=== PATIENT | female | born 1945 | race Caucasian/White ===

== ENCOUNTER 2016-12-15 21:17 | Emergency (ER) | payer MEDICARE, BC ==
[2016-12-15] MEDS: NORMAL SALINE 1,000 ML IV ONE ×2 (21:50→22:58)
[2016-12-15] MEDS: ONDANSETRON HCL/PF 2 MG/ML VIAL IV ONE (21:54)
[2016-12-15] MEDS ORDERED: ONDANSETRON HCL/PF 2 MG/ML VIAL ONE (21:54)
[2016-12-15 21:55] LABS: Hematocrit 42.2 % (37.0-47.0); Hemoglobin 14.6 gm/dL (12.5-16.0); Mean Cell Volume 93.2 fl (78-100); Mean Corpuscular Hemoglobin 32.2 pg (27-31); Mean Corpuscular Hgb Conc 34.6 g/dl (32-36); Mean Platelet Volume 10.6 fl (6.0-9.5); Neutrophil # 2.8 K/mm3 (1.3-6.0); Platelet Count 130 K/mm3 (150-450); Red Blood Count 4.53 M/mm3 (4.2-5.4); Red Cell Distribution Width 13.1 % (11.5-14.0); White Blood Count 4.6 K/mm3 (4.0-10.5)
--- NOTE | 2016-12-15 22:24 | ERNOTE ---
Medical Problem HPI - Narrative Date of Service: 12/15/16 - General Chief Complaint: Nausea/Vomiting Time Seen by Provider: 12/15/16 21:36 Source: patient Exam Limitations: no limitations - Immun/Allergies/Home Medications Immunizations: IMMUNIZATION HX Immunizations Up to Date Yes History of Influenza Vaccine Yes Hx Pneumococcal Vaccination Yes Allergies/Adverse Reactions: Allergies Sulfa (Sulfonamide Antibiotics) [Sulfa(Sulfonamide Antibiotics)] Allergy (Mild, Verified 09/06/15 10:31) Hives codeine Allergy (Verified 02/03/16 13:34) tioconazole [From Monistat 1] Adverse Reaction (Severe, Verified 09/06/15 10:31) Itching hydrocodone bitartrate [From Vicodin] Adverse Reaction (Verified 09/06/15 10:31) Other Home Medications: HOME MEDICATIONS Calcium [Calcio [place]] 500 mg PO DAILY #0 03/14/12 [Last Taken Unknown] Metoprolol Succinate [Toprol Xl] 30 mg PO DAILY 09/06/15 [Last Taken Unknown] Alprazolam [Xanax] 0.25 mg PO BID PRN 12/15/16 [Last Taken Unknown] Esomeprazole Magnesium [Nexium] 50 mg PO DAILY 12/15/16 [Last Taken Unknown] L.acidoph,Paracasei, B.lactis [Probiotic] 1 each PO DAILY 12/15/16 [Last Taken Unknown] Tramadol HCl [Rybix Odt] 50 mg PO BID PRN 12/15/16 [Last Taken Unknown] - History of Present History Narrative: This is a 71-year-old female who is generally healthy. Yesterday morning she started with abdominal pain nausea vomiting and diarrhea. She presents with fatigue and nausea. She has not taken any medications and states that she gets dehydrated easily. Review of Systems - Review of Systems Constitutional: Present: fatigue EYE: Present: no symptoms reported ENT: Present: no symptoms reported Respiratory: Present: no symptoms reported Cardiology: Present: no symptoms reported Gastrointestinal/Abdominal: Present: See HPI, nausea, vomiting, diarrhea. Absent: constipation, abdominal pain Genitourinary: Present: no symptoms reported Musculoskeletal: Present: no symptoms reported Skin: Present: no symptoms reported Neurological: Present: no symptoms reported - Patient's Past Medical History Patient History - Medical: Chronic Pain, Depression, GERD Patient History - Cardiac/Respiratory: Hypertension Patient History - Cancer: No Hx of Cancer Patient History - Surgical Procedures: Cholecystectomy, Colonoscopy, T & A Patient History - Other: None - Family History Mother Family History - Medical: GERD Father Family History - Medical: Family History - Cardiac/Respiratory: Hypertension - Social History Living Situations: spouse Abuse History: No History of abuse Psych History: Hx of Depression Smoking Status: Never smoker Have you smoked in the past 12 months: No Do you dip or chew tobacco: No Alcohol Use: none Drug Use: none - Immunizations Immunizations Up to Date: Yes Hx Pneumococcal Vaccination: Yes History of Influenza Vaccine: Yes Physical Exam - Physical Exam General Appearance: Present: wd/wn, alert, no apparent distress - patient appears tired and fatigued but she does not appear in any respiratory or other kind of distress. Head Exam: Present: normal inspection, no evidence of injury Eye Exam: Normal inspection: bilateral, PERRL: bilateral, EOMI: bilateral Respiratory: Present: no respiratory distress, normal breath sounds, no accessory muscle use, chest nontender, lungs clear Cardiovascular/Chest: Present: regular rate, rhythm, no murmur, normal peripheral pulses Gastrointestinal/Abdominal: Present: nontender, soft, other - patient has increased bowel sounds. However her belly is soft nondistended nontender no rebound tenderness is noted in her belly exam is benign Back Exam: Present: normal inspection, normal range of motion, no CVA tenderness , no vertebral tenderness Neurological Exam: Present: alert, oriented, normal mood/affect, no motor/ sensory deficits ED Progress - Results and Orders Patient's Lab Results:: I have reviewed the patient's lab results. - Vital Signs Patient's Vital Signs:: I have reviewed the patient's vital signs. Vital Signs: Vital Signs 12/15/16 12/15/16 21:21 22:01 Temperature 36.4 C L Pulse Rate 70 88 Respiratory 14 16 Rate Blood Pressure 182/86 170/80 O2 Sat by Pulse 100 99 Oximetry - X-Ray X-Ray #1 X-Ray: abdomen - Progress/Reassessment Chief Complaint: Nausea/Vomiting Plan - Plan Plan: pt felt significantly better after NS X 2 liters and Zofran 4mg IV and Phenergan 25 mg IV. Departure Clinical Impression: Dehydration, Viral gastroenteritis - Departure Disposition: Home self-care Condition: Good Instructions: Viral Gastroenteritis, Adult, [id number] Referrals: Lissy Azul, [facility] [Primary Care Provider] -
[2016-12-15 22:33] LABS: Albumin * 4.3 gm/dl (3.4-5.0); Anion Gap 16.3 mmol/L (6.8-13.8); Bilirubin, Total 0.8 mg/dL (0.0-1.1); Ca. Corrected For Albumin 8.8 mg/dL (8.4-10.2); Calcium * 9.4 mg/dL (7.9-10.9); Carbon Dioxide 26.8 mmol/L (24-32.6); Potassium 4.1 mmol/L (3.4-4.6); Total Protein 7.7 gm/dL (6.2-8.2)
[2016-12-15] MEDS: PROMETHAZINE HCL 25 MG in DEXTROSE 5 % IN WATER 50 ML IV ONE ×2 (22:52)
[2016-12-15] MEDS ORDERED: NORMAL SALINE 1,000 ML IV ONE (23:45)
[2016-12-16 00:06] LABS: Urine Bilirubin Negative (NEGATIVE); Urine Blood 25 /ul (NEGATIVE); Urine Ketone 5 mg/dL (NEGATIVE); Urine Nitrite Negative (NEGATIVE); Urine Protein Negative (NEGATIVE); Urine Urobilinogen Normal (NORMAL)
[2016-12-16 00:29] LABS: Urine Appearance Clear; Urine Color Yellow; Urine RBC None Seen /hpf (0-5); Urine WBC None Seen /hpf (0-5)
[2016-12-16 00:30] LABS: Urine Bacteria TRACE
[2016-12-16 00:36] VITALS: BP 149/79
== END 2016-12-16 00:35 | disposition home or self-care (01) ==
LOC: ER 21:17
DX: A08.4 Viral intestinal infection, unspecified (principal); E86.0 Dehydration; K21.9 Gastro-esophageal reflux disease without esophagitis; I10 Essential (primary) hypertension; F32.9 Major depressive disorder, single episode, unspecified
CPT/HCPCS: 36415; 74020; 80053; 81001; 85025; 96361; 96365; 96375; 99284; J2405

== ENCOUNTER 2016-12-23 12:00 | Day surgery (SDC) | payer MEDICARE, BC ==
[~2016-12-23 12:00] MED LIST: ERTAPENEM SODIUM 1,000 MG in NORMAL SALINE 100 ML IV PRN; GENTAMICIN SULFATE IR PRN; NORMAL SALINE 1,000 ML IV PRN; SODIUM CL IRRIG IR PRN
[2016-12-23 16:55] VITALS: BP 127/69
== END 2016-12-23 12:01 | disposition home or self-care (01) ==
LOC: AMB 12:00
PROVIDERS: ATTEND Urology
PROC: 3E1K88X Irrigation of Genitourinary Tract using Irrigating Substance, Via Natural or Artificial Opening Endoscopic, Diagnostic (ICD-10-PCS; 2016-12-23)
PROC: 0TJB8ZZ Inspection of Bladder, Via Natural or Artificial Opening Endoscopic (ICD-10-PCS; principal; 2016-12-23 13:00)
DX: N39.0 Urinary tract infection, site not specified (principal); B96.1 Klebsiella pneumoniae [K. pneumoniae] as the cause of diseases classified elsewhere; R33.9 Retention of urine, unspecified; I10 Essential (primary) hypertension; Z68.1 Body mass index [BMI] 19.9 or less, adult; Z87.440 Personal history of urinary (tract) infections; Z16.19 Resistance to other specified beta lactam antibiotics; Z16.11 Resistance to penicillins

== ENCOUNTER 2017-10-03 17:40 | Observation (INO) | payer BC, MEDICARE ==
[2017-10-03] MEDS ORDERED: ONDANSETRON 4 MG TAB.RAPDIS PO ONE (19:01)
[2017-10-03] MEDS ORDERED: ONDANSETRON HCL 8 MG TABLET ONE (19:03)
[2017-10-03] MEDS ORDERED: ONDANSETRON HCL/PF 2 MG/ML VIAL ONE (19:05)
[2017-10-03] MEDS ORDERED: ONDANSETRON HCL/PF 2 MG/ML VIAL IV ONE ×2 (19:10→19:45)
[2017-10-03] MEDS ORDERED: diphenhydrAMINE HCL 50 MG/ML VIAL IV ONE (19:10)
[2017-10-03] MEDS ORDERED: diphenhydrAMINE HCL 50 MG/ML VIAL ONE (19:12)
[2017-10-03] MEDS ORDERED: NORMAL SALINE 1,000 ML IV ONE (19:13)
--- NOTE | 2017-10-03 19:29 | ERNOTE ---
Abdominal HPI - Narrative Date of Service: 10/03/17 - General Chief Complaint: Abdominal Pain Time Seen by Provider: 10/03/17 18:56 Source: patient, family Exam Limitations: no limitations - Immun/Allergies/Home Medications Immunizatons: IMMUNIZATION HX Immunizations Up to Date Yes History of Influenza Vaccine Yes Hx Pneumococcal Vaccination Yes Allergies/Adverse Reactions: Allergies Sulfa (Sulfonamide Antibiotics) [Sulfa(Sulfonamide Antibiotics)] Allergy (Mild, Verified 10/03/17 08:32) Hives codeine Adverse Reaction (Intermediate, Verified 10/03/17 08:32) HEART PALPITATIONS hydrocodone bitartrate [From Vicodin] Adverse Reaction (Intermediate, Verified 10/03/17 08:32) HEART PALPITATIONS tioconazole [From Monistat 1] Adverse Reaction (Intermediate, Verified 10/03/17 08:32) RED RAW RASH Home Medications: HOME MEDICATIONS Ca/D3/Mag#11/Zinc/Dividend Deposit Voucher Clerk/Santhosh/Bor [Caltrate Plus Tablet] 1 ea PO DAILY 12/22/16 [ Last Taken Unknown] Cranberry Conc/Ascorbic Acid [Cranberry Concentrate Softgel] 2 ea PO BID [Last Taken Unknown] Minocycline HCl [Minocin] 100 mg PO DAILY PRN 12/22/16 [Last Taken Unknown] Multivitamins [Multivitamin Mohit] 1 cap PO DAILY 12/22/16 [Last Taken Unknown] tramadol 50 mg tablet 50 mg PO Q12H PRN #60 tab 08/24/17 [Last Taken Unknown] alprazolam 0.5 mg tablet 0.5 mg PO TID PRN #90 tab 09/11/17 [Last Taken Unknown] conjugated estrogens 0.625 mg/gram vaginal cream 500 mg VG .twice weekly g 07/24 [Last Taken Unknown] zhpzbqetcj-sxhfjhzotqgq-poeoyt 100 mg-500 mg-50 mg capsule 1 cap PO DAILY cap 09/11/17 [Last Taken Unknown] metoprolol succinate ER 50 mg tablet,extended release 24 hr 50 mg PO DAILY 09/11 [Last Taken Unknown] esomeprazole magnesium 40 mg capsule,delayed release 40 mg PO DAILY #30 cap 08/23 [Last Taken Unknown] sucralfate 1 gram tablet 1 g PO QID 14 Days #56 tab 10/03/17 [Last Taken Unknown ] - History of Present Illness Narrative: Pt presents with a 2 week history of mid epigastric pain. She was seen by her PCP today with labs and xrays completed. Laboratory findings were unremarkable. She was sent home with Carafate and diagnosed with gastroenteritis. Last week she was also seen and her Nexium was increased to 40mg PO daily. Last week associated symptoms were diarrhea and constipation, this has since resolved. Now she is experiencing intractable nausea and dry heaves. She has decreased appetite, been unable to tolerate anything PO. She states that about 8 years ago she has an episode very similar to this that required hospitalization where she was seen by Dr. Umaña who diagnosed her with H. Pylori. That is when her last workup including a colonoscopy and EGD were preformed. She cannot get into Dr. Umaña for another week. Date (Duration): 09/19/17 Time (Timing): 10:00 Timing: constant, getting worse Quality: severe, aching, dullness Activities at Onset: none Modifying Factors - (Improves): Present: lying down Modifying Factors - (Worsens): Present: eating, vomiting Associated Symptoms: Present: back pain, fatigue, heartburn, nausea, vomiting, loss of appetite, weakness Prior Abdominal Problems: Present: similar symptoms Prior Treatment: Present: recently seen, treated by physician Review of Systems - Review of Systems Constitutional: Present: weakness, fatigue, malaise EYE: Present: no symptoms reported ENT: Present: no symptoms reported Respiratory: Present: no symptoms reported Cardiology: Present: no symptoms reported Gastrointestinal/Abdominal: Present: See HPI, nausea, vomiting, diarrhea, abdominal pain, eating less Genitourinary: Present: no symptoms reported Musculoskeletal: Present: no symptoms reported Skin: Present: no symptoms reported Neurological: Present: no symptoms reported Endocrine: Present: no symptoms reported Hematologic/Lymphatic: Present: no symptoms reported Psych: Present: anxiety Medical History (Last Reviewed 10/03/17 @ 08:38 by ERNESTO Guevara) Osteopenia (Chronic) Onset Date: ~2013 Hypertension (Chronic) Onset Date: Unknown GERD (gastroesophageal reflux disease) (Chronic) Onset Date: Unknown Depression (Chronic) Onset Date: Unknown Anxiety (Chronic) Onset Date: Unknown Abnormal Pap smear of vagina Onset Date: Unknown Bulging disc Onset Date: Unknown Carbuncle Onset Date: Unknown H. pylori infection Onset Date: ~2009 Headache Onset Date: Unknown Hiatal hernia Onset Date: Unknown Left knee pain Onset Date: Unknown Patellar tendinitis Onset Date: ~2011 UTI (urinary tract infection) Onset Date: Unknown Urinary retention Onset Date: Unknown Surgical History: Surgical History (Last Reviewed 10/03/17 @ 08:38 by ERNESTO Guevara) H/O colonoscopy Onset Date: ~2006 H/O cystoscopy Onset Date: ~12/2016 H/O wisdom tooth extraction Onset Date: Unknown History of cholecystectomy Onset Date: ~1992 History of endometrial biopsy Onset Date: ~11/2016 History of esophagogastroduodenoscopy (EGD) Onset Date: ~2011 History of nasal surgery Onset Date: ~2010 Hx of tonsillectomy Onset Date: ~1946 S/P epidural steroid injection Onset Date: ~2010 Family History: Family History (Last Reviewed 10/03/17 @ 08:38 by ERNESTO Guevara) Father CVA (cerebral vascular accident) Hypertension Mother Alive and well Social History: Preferred Language Khmer Do you have any hinduism or Yes: holiness cultural preference? Have you smoked in the past 12 No months Do you dip or chew tobacco No Abuse History No History of abuse Psych History Hx of Anxiety,Hx of Depression,Currently on Meds Alcohol Use sober Drug Use none Physical Exam - Physical Exam General Appearance: Present: wd/wn, alert, moderate distress, anxious Head Exam: Present: normal inspection Eye Exam: Normal inspection: bilateral Ears, Nose, Throat: Present: normal ENT inspection Neck: Present: normal inspection Respiratory: Present: no respiratory distress Cardiovascular/Chest: Present: regular rate, rhythm, no murmur, normal peripheral pulses Gastrointestinal/Abdominal: Present: normal bowel sounds, nondistended, soft, no organomegaly, tenderness Back Exam: Present: normal inspection Extremity Exam: Present: normal inspection Neurological Exam: Present: alert, oriented, normal mood/affect, no motor/ sensory deficits Skin Exam: Present: normal color, warm/dry Lymphatic Exam: Present: no adenopathy ED Progress - Date and Time Seen: Date and Time: 10/03/17 20:32 Pt pain slightly improved following GI cocktail. Still endorsing BRAY. Nausea has subsided. - Results and Orders Patient's Lab Results:: I have reviewed the patient's lab results. - Vital Signs Patient's Vital Signs:: I have reviewed the patient's vital signs. Vital Signs: Vital Signs 10/03/17 17:49 Temperature 37.1 C Pulse Rate 77 Respiratory Rate 14 Blood Pressure 151/82 H O2 Sat by Pulse Oximetry 100 - Progress/Reassessment Chief Complaint: Abdominal Pain Progress:: Unchanged Plan - Plan Plan: Pt is still having persistent nausea. She states her epigastric pain has returned and she does not feel like she is well enough to go home. Dr. Ceja accepts pt as in pt obs. Departure Clinical Impression: Viral gastroenteritis, Nausea, Dehydration GERD (gastroesophageal reflux disease) Qualifiers: Esophagitis presence: esophagitis presence not specified Qualified Code(s): K21.9 - Gastro-esophageal reflux disease without esophagitis - Departure Disposition: Still a patient Condition: Good Referrals: Lissy Azul FNP [Primary Care Provider] -
[2017-10-03] MEDS ORDERED: BELLADONNA ALKALOIDS/PHENOBARB 60 ML BTL PO ONE (19:42)
[2017-10-03] MEDS ORDERED: MAG HYDROX/ALUMINUM HYD/SIMETH 30 ML UDC PO ONE (19:42)
[2017-10-03] MEDS ORDERED: LIDOCAINE HCL 20 ML UDC MM ONE (19:42)
[2017-10-03] MEDS ORDERED: PANTOPRAZOLE SODIUM 40 MG in NORMAL SALINE 100 ML IV ONE (19:45)
[2017-10-03] MEDS ORDERED: PANTOPRAZOLE SODIUM 40 MG/100 ML PIGGYBACK IV ONE (19:57)
[2017-10-03] MEDS ORDERED: PROMETHAZINE HCL 25 MG TABLET PO ONE (21:17)
[2017-10-03] MEDS ORDERED: ALPRAZOLAM 0.5 MG PO PRN (21:25)
[2017-10-03] MEDS ORDERED: traMADol HCL 50 MG TABLET PO PRN (21:25)
[2017-10-03] MEDS ORDERED: MAG HYDROX/ALUMINUM HYD/SIMETH 30 ML UDC PO PRN (21:25)
[2017-10-03] MEDS ORDERED: PROMETHAZINE HCL 25 MG TABLET ONE (21:41)
[2017-10-03] MEDS: NORMAL SALINE 1,000 ML IV PRN (22:42)
[2017-10-04] MEDS: ONDANSETRON HCL/PF 2 MG/ML VIAL IV PRN ×2 (00:39→06:23)
[2017-10-04] MEDS ORDERED: traMADol HCL 50 MG TABLET PO PRN (01:32)
[2017-10-04] MEDS: METOCLOPRAMIDE HCL 5 MG/ML VIAL IV PRN ×4 (01:55→17:12)
[2017-10-04 05:58] LABS: Calcium * 8.2 mg/dL (7.9-10.9); Carbon Dioxide 26.6 mmol/L (24-32.6); Estimated Creat Clear 64.9; Potassium 3.6 mmol/L (3.4-4.6)
[2017-10-04 05:59] LABS: Hematocrit 36.9 % (37.0-47.0); Hemoglobin 12.6 gm/dL (12.5-16.0); Mean Cell Volume 95.1 fl (78-100); Mean Corpuscular Hemoglobin 32.5 pg (27-31); Mean Corpuscular Hgb Conc 34.1 g/dl (32-36); Mean Platelet Volume 10.2 fl (8-12.5); Neutrophil # 3.7 K/mm3 (1.3-6.0); Neutrophil % 72.8 % (42-75.0); Platelet Count 113 K/mm3 (150-450); Red Blood Count 3.88 M/mm3 (4.2-5.4); Red Cell Distribution Width 12.2 % (11.5-14.0); White Blood Count 5.1 K/mm3 (4.0-10.5)
[2017-10-04] MEDS ORDERED: PANTOPRAZOLE SODIUM 40 MG TABLET.EC PO SCH (07:00)
[2017-10-04] MEDS ORDERED: ALPRAZolam 0.5 MG TABLET PO PRN (07:00)
[2017-10-04] MEDS ORDERED: METOPROLOL SUCCINATE 50 MG TABLET.SA PO SCH (09:00)
[2017-10-04] MEDS ORDERED: [UNRECOGNIZED DRUG - OTHER] PO SCH (09:00)
[2017-10-04] MEDS: SUCRALFATE 1 G TABLET PO SCH ×3 (10:26→17:19)
--- NOTE | 2017-10-04 11:04 | HP ---
Chief Complaint - Chief Complaint Date of Service: 10/04/17 Time of Service: 09:00 Chief Complaint: Epigastric Pain, Nausea History of Present Illness: Ava is a 72 yo female who presented to the [facility] ER with uncontrolled epigastric abdominal pain, reflux, and nausea. She had previously been taking OTC nexium that had controlled her symptoms for years. In the past month her symptoms have progressively worsened and she reports being unable to eat anything in the last few weeks. She was seen by her PCP Lissy Azul and increased to 40mg of Nexium. In follow up she reported no improvement and was started on Carafate QID on the day of admission. The symptoms continued to worsen and she presented to the ER. She was given pantoprozole, IV zofran, IV phenergan, and a GI cocktail without any improvement. ER contacted medicine for admission for intractable nausea and epigastric pain. The patient reports she has vomited but is currently only dry heaving as she has not been able to eat for the last week. She denies any blood in stool or emesis. This morning she reports feeling a little better, but still having nausea and epigastric pain. Medical History (Last Reviewed 10/03/17 @ 08:38 by ERNESTO Guevara) Osteopenia (Chronic) Onset Date: ~2013 Hypertension (Chronic) Onset Date: Unknown GERD (gastroesophageal reflux disease) (Chronic) Onset Date: Unknown Depression (Chronic) Onset Date: Unknown Anxiety (Chronic) Onset Date: Unknown Abnormal Pap smear of vagina Onset Date: Unknown Bulging disc Onset Date: Unknown Carbuncle Onset Date: Unknown H. pylori infection Onset Date: ~2009 Headache Onset Date: Unknown Hiatal hernia Onset Date: Unknown Left knee pain Onset Date: Unknown Patellar tendinitis Onset Date: ~2011 UTI (urinary tract infection) Onset Date: Unknown Urinary retention Onset Date: Unknown Surgical History: Surgical History (Last Reviewed 10/03/17 @ 08:38 by ERNESTO Guevara) H/O colonoscopy Onset Date: ~2006 H/O cystoscopy Onset Date: ~12/2016 H/O wisdom tooth extraction Onset Date: Unknown History of cholecystectomy Onset Date: ~1992 History of endometrial biopsy Onset Date: ~11/2016 History of esophagogastroduodenoscopy (EGD) Onset Date: ~2011 History of nasal surgery Onset Date: ~2010 Hx of tonsillectomy Onset Date: ~1946 S/P epidural steroid injection Onset Date: ~2010 Family History: Family History (Last Reviewed 10/03/17 @ 08:38 by ERNESTO Guevara) Father CVA (cerebral vascular accident) Hypertension Mother Alive and well Social History: Patient Lives/Resources With Spouse Utilized Occupation Retired Preferred Language Ecuadorean Do you have any hoahaoism or No cultural preference? Smoking Status Never smoker Have you smoked in the past 12 No months Do you dip or chew tobacco No Abuse History No History of abuse Psych History Hx of Anxiety,Hx of Depression,Currently on Meds Alcohol Use sober Drug Use none Review Of Systems (GEN) - Review of Systems Generalized/Overall Review: Present: Weakness, Fatigue. Absent: Chills, Fever EENTM: Present: No Symptoms Reported Respiratory: Present: No Symptoms Reported Cardiac: Present: Chest Pain Abdominal: Present: Nausea, Vomiting, Abdominal Pain. Absent: Hematemesis, Constipation, Diarrhea, Melena, Bright blood from rectum Genitourinary: Present: No Symptoms Reported Musculoskeletal: Present: No Symptoms Reported Neurological: Present: No Symptoms Reported Skin: Present: No Symptoms Reported Endocrine: Present: No Symptoms Reported Immunizations: IMMUNIZATION HX Immunizations Up to Date Yes History of Influenza Vaccine Yes Hx Pneumococcal Vaccination Yes Allergies/Adverse Reactions: Allergies Allergy/AdvReac Type Severity Reaction Status Date / Time Sulfa (Sulfonamide Allergy Mild Hives Verified 10/03/17 08:32 Antibiotics) [Sulfa(Sulfonamide Antibiotics)] codeine AdvReac Intermediate HEART Verified 10/03/17 08:32 PALPITATIONS hydrocodone bitartrate AdvReac Intermediate HEART Verified 10/03/17 08:32 [From Vicodin] PALPITATIONS tioconazole [From Monistat 1] AdvReac Intermediate RED RAW Verified 10/03/17 08: 32 RASH Home Medications: HOME MEDICATIONS Ca/D3/Mag#11/Zinc/Market Master/Satnhosh/Bor [Caltrate Plus Tablet] 1 ea PO DAILY 12/22/16 [ Last Taken Unknown] Cranberry Conc/Ascorbic Acid [Cranberry Concentrate Softgel] 2 ea PO BID [Last Taken Unknown] Minocycline HCl [Minocin] 100 mg PO DAILY PRN 12/22/16 [Last Taken Unknown] Multivitamins [Multivitamin [place]] 1 cap PO DAILY 12/22/16 [Last Taken Unknown] tramadol 50 mg tablet 50 mg PO Q12H PRN #60 tab 07/19/18 [Last Taken Unknown] alprazolam 0.5 mg tablet 0.5 mg PO TID PRN #90 tab 09/11/17 [Last Taken Unknown] conjugated estrogens 0.625 mg/gram vaginal cream 500 mg VG .twice weekly g 07/24 [Last Taken Unknown] gewqzxfmhv-krdxaxwofxao-givlcs 100 mg-500 mg-50 mg capsule 1 cap PO DAILY cap 09/11/17 [Last Taken Unknown] metoprolol succinate ER 50 mg tablet,extended release 24 hr 50 mg PO DAILY 09/11 [Last Taken Unknown] esomeprazole magnesium 40 mg capsule,delayed release 40 mg PO DAILY #30 cap 08/23 [Last Taken Unknown] sucralfate 1 gram tablet 1 g PO QID 14 Days #56 tab 10/03/17 [Last Taken Unknown ] Exam - Exam Vital Signs: Vital Signs - Last Taken Temp 36.6 C 10/04/17 09:33 Pulse 62 10/04/17 10:26 Resp 16 10/04/17 09:33 BP 126/63 10/04/17 10:26 Pulse Ox 98 10/04/17 09:33 Constitutional: Present: Alert, Oriented x3, Cooperative ENT Exam: Present: hearing grossly normal Eye Exam: bilateral eye: normal inspection Respiratory: Present: lungs clear, normal breath sounds Cardiovascular/Chest: Present: regular rate, rhythm, no murmur Abdomen: Present: Normal bowel sounds, soft, nondistended, no rebound tenderness , no hepatospenomegaly, no masses, tender - Epigastric Skin Exam: Present: normal color, warm/dry, no cyanosis Appearance: Present: appropriate appearance, appropriate insight Eye contact: Present: cooperative, good eye contact, normal speech Diagnostic Studies: Abnormal Lab Results 10/04/17 10/04/17 Range/Units 05:46 05:46 RBC 3.88 L (4.2-5.4) M/mm3 Hct 36.9 L (37.0-47.0) % MCH 32.5 H (27-31) pg Plt Count 113 L (150-450) K/mm3 Immature Gran % (Auto) 0.60 H (0.001-0.429) % Lymphocytes % 18.7 L (20-51) % Lymphocytes # 0.95 L (1.5-3.5) k/mm3 Chloride 107 H (97-106) mmol/L BUN/Creatinine Ratio 23.0 H (9.0-21.6) Laboratory Results WBC 5.1 K/mm3 (4.0-10.5) 10/04/17 05:46 RBC 3.88 M/mm3 (4.2-5.4) L 10/04/17 05:46 Hgb 12.6 gm/dL (12.5-16.0) 10/04/17 05:46 Hct 36.9 % (37.0-47.0) L 10/04/17 05:46 MCV 95.1 fl (78-100) 10/04/17 05:46 MCH 32.5 pg (27-31) H 10/04/17 05:46 MCHC 34.1 g/dl (32-36) 10/04/17 05:46 RDW 12.2 % (11.5-14.0) 10/04/17 05:46 Plt Count 113 K/mm3 (150-450) L 10/04/17 05:46 MPV 10.2 fl (8-12.5) 10/04/17 05:46 Immature Gran % (Auto) 0.60 % (0.001-0.429) H 10/04/17 05:46 Immature Gran # (Auto) 0.03 K/mm3 (0.000-0.0310) 10/04/17 05:46 Neutrophils % 72.8 % (42-75.0) 10/04/17 05:46 Lymphocytes % 18.7 % (20-51) L 10/04/17 05:46 Monocytes % 6.7 % (0.0-9) 10/04/17 05:46 Eosinophils % 0.6 % (0.0-3.0) 10/04/17 05:46 Basophils % 0.6 % (0.0-1.0) 10/04/17 05:46 Nucleated RBC % 0.0 k/mm3 (0-1) 10/04/17 05:46 Neutrophils # 3.7 K/mm3 (1.3-6.0) 10/04/17 05:46 Lymphocytes # 0.95 k/mm3 (1.5-3.5) L 10/04/17 05:46 Monocytes # 0.3 k/mm3 (0.0-1.0) 10/04/17 05:46 Eosinophils # 0.0 k/mm3 (0.0-0.7) 10/04/17 05:46 Absolute Basophils 0.0 k/mm3 (0.0-0.1) 10/04/17 05:46 Sodium 140 mmol/L (132-142) 10/04/17 05:46 Plasma Sodium 140 mmol/L (130-142) 10/04/17 05:46 Potassium 3.6 mmol/L (3.4-4.6) 10/04/17 05:46 Chloride 107 mmol/L (97-106) H 10/04/17 05:46 Carbon Dioxide 26.6 mmol/L (24-32.6) 10/04/17 05:46 Anion Gap 10.0 mmol/L (6.8-13.8) 10/04/17 05:46 BUN 17 mg/dL (3-23) 10/04/17 05:46 Creatinine 0.74 mg/dL (0.4-1.4) 10/04/17 05:46 Est GFR (Non-Af Amer) 82 mL/min (60-130) 10/04/17 05:46 BUN/Creatinine Ratio 23.0 (9.0-21.6) H 10/04/17 05:46 Random Glucose 92 mg/dL (70-110) 10/04/17 05:46 Calcium 8.2 mg/dL (7.9-10.9) 10/04/17 05:46 Assessment/Plan - Narrative Narrative: Ava is a 72 yo female with intractable nausea and vomiting that appears to be secondary to dyspepsia and GERD. She has been on Nexium 40mg daily and was just started on Carafate. This morning she is feeling a little better. The carafate may be helping, will continue this and Nexium. Will start clear liquid diet today to see if she can tolerate eating. If this is tolerated will plan to discharge to home later today. Will check stool antigen for H. Pylori. Will admit to observation, expect 1 midnight hospitalization. - Assessment/Plan (1) Intractable nausea and vomiting Problem: Acute Qualifiers: Vomiting type: unspecified Qualified Code(s): R11.2 - Nausea with vomiting , unspecified (2) Abdominal pain Problem: Acute Qualifiers: Abdominal location: epigastric Qualified Code(s): R10.13 - Epigastric pain (3) GERD (gastroesophageal reflux disease) Problem: Chronic Qualifiers: Esophagitis presence: with esophagitis Qualified Code(s): K21.0 - Gastro- esophageal reflux disease with esophagitis
[2017-10-04] MEDS: NORMAL SALINE 1,000 ML IV PRN (12:42)
--- NOTE | 2017-10-04 17:00 | DS ---
(1) Intractable nausea and vomiting Problem: Acute Qualifiers: Vomiting type: unspecified Qualified Code(s): R11.2 - Nausea with vomiting , unspecified (2) Abdominal pain Problem: Acute Qualifiers: Abdominal location: epigastric Qualified Code(s): R10.13 - Epigastric pain (3) GERD (gastroesophageal reflux disease) Problem: Chronic Qualifiers: Esophagitis presence: with esophagitis Qualified Code(s): K21.0 - Gastro- esophageal reflux disease with esophagitis Description of Stay: Ava is a 72 yo female admitted for intractable dyspepsia, gerd, nausea and vomiting. She was placed on pantoprozole, Carafate, and reglan. Her symptoms improved, her diet was advanced to clear liquid diet, and she tolerated this well. She reported having loose stool. I suspect that the longer she is on carafate the better her symptoms will become. It is also possible that she has low GI motility and the reglan has improved this. Will give her a rx for reglan to use prn nausea. She will follow up with Dr. Umaña as scheduled next Monday. Procedures Performed: none Results and Findings: Lab Pending Results 10/04/17 05:46: WBC 5.1, RBC 3.88 L, Hgb 12.6, Hct 36.9 L, MCV 95.1, MCH 32.5 H , MCHC 34.1, RDW 12.2, Plt Count 113 L, MPV 10.2, Immature Gran % (Auto) 0.60 H , Immature Gran # (Auto) 0.03, Neutrophils % 72.8, Lymphocytes % 18.7 L, Monocytes % 6.7, Eosinophils % 0.6, Basophils % 0.6, Nucleated RBC % 0.0, Neutrophils # 3.7, Lymphocytes # 0.95 L, Monocytes # 0.3, Eosinophils # 0.0, Absolute Basophils 0.0 10/04/17 05:46: Sodium 140, Plasma Sodium 140, Potassium 3.6, Chloride 107 H, Carbon Dioxide 26.6, Anion Gap 10.0, BUN 17, Creatinine 0.74, Est GFR (Non-Af Amer) 82, BUN/Creatinine Ratio 23.0 H, Random Glucose 92, Calcium 8.2 Discharge Location: Home Disposition: Home self-care Condition: Fair Discharge Activity: Activity as tolerated Discharge Diet: Clear Liquids - advance as tolerated Referrals: Oksar Umaña MD [Staff Physician] - 10/10/17 (Already scheduled) Additional Patient Instructions (free text): -Please make TCM appointment unless residential discharge. Thank you! Candie @ [phone]. Prescriptions (Any new or edited meds): Metoclopramide HCl [Reglan] 10 mg PO QID PRN #60 tab PRN Reason: Nausea Complete Home Medications List: Complete Home Medication List: Ca/D3/Mag#11/Zinc/[employer]/Santhosh/Bor [Caltrate 600+D Plus Tablet] 1 ea PO DAILY Cranberry Conc/Ascorbic Acid [Cranberry Concentrate Softgel] 2 ea PO BID Minocycline HCl [Minocin] 100 mg PO DAILY PRN 12/22/16 Multivitamins [Multivitamin Mohit] 1 cap PO DAILY 12/22/16 tramadol 50 mg tablet 50 mg PO Q12H PRN #60 tab 08/24/17 alprazolam 0.5 mg tablet 0.5 mg PO TID PRN #90 tab 09/11/17 conjugated estrogens 0.625 mg/gram vaginal cream 500 mg VG .twice weekly g 07/24 hnxqucfnrt-dajgivsazyot-bzswmp 100 mg-500 mg-50 mg capsule 1 cap PO DAILY cap 09/11/17 metoprolol succinate ER 50 mg tablet,extended release 24 hr 50 mg PO DAILY 09/11 esomeprazole magnesium 40 mg capsule,delayed release 40 mg PO DAILY #30 cap 08/23 sucralfate 1 gram tablet 1 g PO QID 14 Days #56 tab 10/03/17 Metoclopramide HCl [Reglan] 10 mg PO QID PRN #60 tab 10/04/17
[2017-10-04 18:36] VITALS: BP 158/84
== END 2017-10-04 18:36 | disposition home or self-care (01) ==
LOC: MS 17:40 → ER 17:40 → MS 21:35
PROVIDERS: ADMIT Family Medicine; ATTEND Family Medicine
DX: R10.13 Epigastric pain; E86.0 Dehydration; A08.39 Other viral enteritis; I10 Essential (primary) hypertension; K21.9 Gastro-esophageal reflux disease without esophagitis
CPT/HCPCS: 36415; 74019; 74020; 80048; 80053; 85025; 86140; 87338; 96361; 96374; 96375; 96376; 99213; 99284; G0378; J2405